=== PATIENT | male | born 1990 | race Caucasian/White ===

== ENCOUNTER 2020-11-21 10:17 | Outpatient (CLI) | payer OTHER, SELFPAY | END 2020-11-21 10:18 | disposition home or self-care (01) | LOC: ANHCOVIDVC 10:17 | PROVIDERS: PCP Family Medicine | DX: Z23 Encounter for immunization (principal) | CPT/HCPCS: 0001A; 91300 ==

== ENCOUNTER 2020-12-12 10:15 | Outpatient (CLI) | payer OTHER, SELFPAY | END 2020-12-12 10:16 | disposition home or self-care (01) | LOC: ANHCOVIDVC 10:15 | PROVIDERS: PCP Family Medicine | DX: Z23 Encounter for immunization (principal) | CPT/HCPCS: 0002A; 91300 ==

== ENCOUNTER → 2022-01-21 09:12 | Outpatient (CLI) | payer OTHER, SELFPAY ==
--- NOTE | ~2022-01-21 | XR_ITS ---
EXAMINATION: XR hand LT min 3V, XR wrist LT min 3V DATE: 01/21/2022 10:00 INDICATION: Injury to the left hand and wrist. TECHNIQUE: 1. Posteroanterior, navicular, oblique, and lateral views of the left wrist were obtained. 2. Dorsal palmar, oblique and lateral views of the left hand were obtained. COMPARISON: None. FINDINGS: Alignment of the left hand and wrist are normal. No fracture identified. Joint spaces are normal. No erosions or periosteal reaction. No focal soft tissue swelling. IMPRESSION: 1. Negative left hand and wrist radiographs. Reviewed, dictated and finalized at location A. IMPRESSION: 1. Negative left hand and wrist radiographs.
== END ==
PROVIDERS: PCP Family Medicine; Visit Provider Family Medicine
DX: S69.90XA Unspecified injury of unspecified wrist, hand and finger(s), initial encounter (principal); X58.XXXA Exposure to other specified factors, initial encounter
CPT/HCPCS: 73110; 73130

== ENCOUNTER 2024-12-30 16:44 | Emergency (ER) | payer OTHER, SELFPAY ==
--- OUTSIDE RECORDS SUMMARY | 2024-12-30 16:46 | XMS_ITS | Data Portability ---
[facility] Organization [facility] Address [address] [place] [address] Care Team Providers Care Chemistry Technical Officer Name Role Phone WEISS, ROCIO Primary Care Provider Unavailabl e Assessment No assessment recorded. Plan of Treatment Reminders Order Date Submit Date Provider Last Modified By Organization Details Last Modified Time Details Appointments None recorded. Lab SARS CoV 2 RNA (COVID-19), QL, registered respiratory technician-PCR, respiratory specimen - [place], cough 2019 020 [facility] (Lab), [address] [place], [address], 0 17:27:49 TSH, ultra-sensi tive, serum 2018 019 [facility], [address], [address], [place], [address], 9 10:36:29 CMP, serum or plasma 2018 019 [facility], [address], [place], [address], 9 10:36:26 lipid panel, serum 2018 019 [facility], [address], [place], [address], 9 10:36:27 CBC 2018 019 [facility], [address], [place], [address], 9 10:36:27 vitamin D, 25-hydroxy, total, serum 2018 019 [facility], [address] [facility], [facility] [address], [place], [address], 9 10:36:28 vitamin B12 + folate, serum or blood 2018 019 [facility], [address] [facility], [facility], [place], [address], 9 10:36:28 TSH, ultra-sensi tive, serum 2016 017 [facility], [address] [facility], [address], [place], [address], 7 10:36:48 Referral general surgeon referral 2018 019 noel Wesley MD, [address] [facility] , [facility] [address], [place], [address], 9 18:02:[address] referral - Please call pt to schedule appointment , Thank you 2016 017 [facility] ([facility]), [address], [address], [place], [address], 7 08:55:56 Procedures None recorded. Surgeries None recorded. Imaging US, upper extremity, nonvascular - r/o left AC seperation 2017 018 [facility] Not available 8 15:34:17 XR, clavicle 2016 017 [facility], [address] [facility] [place] [place], [address], 7 11:37:06 XR, shoulder 2016 017 [facility], [address] [facility] [place] [place], [address], 7 11:37:06 Medication Orders None recorded. Patient TargetsNo targets recorded. Patient Instructions Encounter Date Encounter Id Patient Instructions Last Modified By Organization Details Last Modified Time 04/07/2017 [id number] shoulder pain: care instructions Not available 04/07/2017 10:14:12 shoulder stretches: exercises Not available 04/07/2017 10:14:12 Increase activit y level to get exercise most days of the week. Work on eating more fresh fruit, veggies and lean protein and less packaged foods. Take all medications as prescribed. Keep appointments with PCP and all specialists. Not available 04/07/2017 10:12:29 xray, lab and derm referral, will call with all results DWP barriers to care: none Not available 04/07/2017 10:33:51 06/02/2017 [id number] shoulder pain: care instructions Not available 06/02/2017 09:48:30 Cont PT exercise s as discussed. Not available 06/02/2017 09:47:40 f/u as needed, a t least yearly to keep established. DWP barriers to care: none Not available 06/02/2017 10:19:59 10/12/2017 [id number] shoulder pain: care instructions Not available 10/12/2017 10:52:53 keep f/u as planned DWP barriers to care: none Not available 10/12/2017 11:11:58 12/30/2018 [id number] hernia: care instructions Not available 12/30/2018 09:06:34 Well Visit, Ages 18 to 65: Care Instructions Not available 12/30/2018 09:06:34 Increase intake of fresh fruits, and vegetables. Avoid packaged foods and fast foods. Follow a low salt diet, drink at least 8-10 8oz glasses of water a day, exercise most days of the week. Take all medications as prescribed. Keep appointments with PCP and all specialists. [facility] Not available 12/30/2018 09:06:46 follow up as needed, yearly to keep established with provider [facility] Not available 12/30/2018 09:08:57 12/19/2019 [id number] Reviewed the following recommendations: -Stay home and separate from others as much as possible. -Monitor your symptoms and seek medical attention for trouble breathing, persistent chest pain, confusion, or bluish lips or face. -Wear a mask if you must be around other people. -Wash your hands often for 20 seconds with soap and water and clean high-touch surfaces daily -You may discontinue home isolation if your symptoms are improving, it has been 10 days since symptoms started, and you have been fever free for at least 3 days. [email or web address] Not available 12/19/2019 11:10:05 Reason for Referral Labor Relations Worker Referral for C keesha in skin lesion Please call pt to schedule appointment, Thank you Referring Physician: Rocio Weiss [facility], Encounter Date: 04/07/2017 General Surgeon Referral for Hernia of anterior abdominal wall Referring Physician: Rocio Weiss [facility], Encounter Date: 12/30/2018 Results Created Date Observation Date Name Description Value Unit Range Abnormal Flag Note LastModifiedBy Organization Detail LastModifiedTime 04/07/20 17 04/08/2017 TSH, ultra -sens itive , serum TSH 2.300 uIU/m L 0.450- 4.500 Not Available [facility] ([facility]) [address] [place], [address], 04/08/2017 10:36:48 12/31/19 19 12/31/2018 CMP, serum or plasm a glucose 89 mg/dL 65-99 Not Available [facility] ([facility]) [address] [place], [address], 12/31/2018 10:36:26 12/31/19 19 12/31/2018 CMP, serum or plasm a BUN 12 mg/dL 6-20 Not Available [facility] ([facility]) [address] [place], [address], 12/31/2018 10:36:26 12/31/19 19 12/31/2018 CMP, serum or plasm a creatinine 0.95 mg/dL 0.76-1 .27 Not Available [facility] ([facility]) [address] [place], [address], 12/31/2018 10:36:26 12/31/19 19 12/31/2018 CMP, serum or plasm a eGFR if nonafricn AM 110 mL/mi n/1.7 3 >59 Not Available [facility] ([facility]) [address] [facility] [place], [address], 12/31/2018 10:36:26 12/31/19 19 12/31/2018 CMP, serum or plasm a eGFR if africn AM 127 mL/mi n/1.7 3 >59 Not Available [facility] ([facility]) [address] [facility] [place], [address], 12/31/2018 10:36:26 12/31/19 19 12/31/2018 CMP, serum or plasm a BUN/creatini ne ratio 13 9-20 Not Available [facility] ([facility]) [address] [facility] [place], [address], 12/31/2018 10:36:26 12/31/19 19 12/31/2018 CMP, serum or plasm a sodium 141 mmol/ L 134-14 4 Not Available [facility] ([facility]) [address] [facility] [place], [address], 12/31/2018 10:36:26 12/31/19 19 12/31/2018 CMP, serum or plasm a potassium 4.6 mmol/ L 3.5-5. 2 Not Available [facility] ([facility]) [address] [facility] [place], [address], 12/31/2018 10:36:26 12/31/19 19 12/31/2018 CMP, serum or plasm a chloride 103 mmol/ L 96-106 Not Available [facility] ([facility]) [address] [facility] [place], [address], 12/31/2018 10:36:26 12/31/19 19 12/31/2018 CMP, serum or plasm a carbon dioxide, total 25 mmol/ L 20-29 Not Available [facility] ([facility]) [address] [facility], [place], [address], 12/31/2018 10:36:26 12/31/19 19 12/31/2018 CMP, serum or plasm a calcium 9.8 mg/dL 8.7-10 .2 Not Available [facility] ([facility]) [address] [facility] [place], [address], 12/31/2018 10:36:26 12/31/19 19 12/31/2018 CMP, serum or plasm a protein, total 7.2 g/dL 6.0-8. 5 Not Available [facility] ([facility]) [address] [facility], [place], [address], 12/31/2018 10:36:26 12/31/19 19 12/31/2018 CMP, serum or plasm a albumin 4.8 g/dL 3.5-5. 5 Not Available [facility] ([facility]) [address] [facility], [place], [address], 12/31/2018 10:36:26 12/31/19 19 12/31/2018 CMP, serum or plasm a globulin, total 2.4 g/dL 1.5-4. 5 Not Available [facility] ([facility]) [address] [facility], [place], [address], 12/31/2018 10:36:26 12/31/19 19 12/31/2018 CMP, serum or plasm a A/G ratio 2.0 1.2-2. 2 Not Available [facility] ([facility]) [address] [facility], [place], [address], 12/31/2018 10:36:26 12/31/1912/31/2018 CMP, serum or plasm a bilirubin, total 0.6 mg/dL 0.0-1. 2 Not Available [facility] ([facility]) [address] [facility] [place], [address], 12/31/2018 10:36:26 12/31/19 19 12/31/2018 CMP, serum or plasm a alkaline phosphatase 48 IU/L 39-117 Not Available [facility]) [address] [place], [address], 12/31/2018 10:36:26 12/31/19 19 12/31/2018 CMP, serum or plasm a AST (SGOT) 21 IU/L 0-40 Not Available [facility] ([facility]) [address] [facility] [place], [address], 12/31/2018 10:36:26 12/31/19 19 12/31/2018 CMP, serum or plasm a ALT (SGPT) 20 IU/L 0-44 Not Available [facility] ([facility]) [address] [facility] [place], [address], 12/31/2018 10:36:26 12/31/19 19 12/31/2018 CBC WBC 4.2 x10e3 /uL 3.4-10 .8 Not Available [facility] ([facility]) [address] [place], [address], 12/31/2018 10:36:27 12/31/1912/31/2018 CBC RBC 4.91 x10e6 /uL 4.14-5 .80 Not Available [facility] ([facility]) [address] [facility] [place], [address], 12/31/2018 10:36:27 12/31/1912/31/2018 CBC hemoglobin 15.6 g/dL 13.0-1 7.7 Not Available [facility] ([facility]) [address] [facility] [place], [address], 12/31/2018 10:36:27 12/31/1912/31/2018 CBC hematocrit 43.2 % 37.5-5 1.0 Not Available [facility] ([facility]) [address] [facility] [place], [address], 12/31/2018 10:36:27 12/31/19 19 12/31/2018 CBC MCV 88 fL 79-97 Not Available [facility] ([facility]) [address] [facility] [place], [address], 12/31/2018 10:36:27 12/31/19 19 12/31/2018 CBC MCH 31.8 pg 26.6-3 3.0 Not Available [facility] ([facility]) [address] [facility] [place], [address], 12/31/2018 10:36:27 12/31/19 19 12/31/2018 CBC MCHC 36.1 g/dL 31.5-3 5.7 above high normal Not Available [facility] ([facility]) [address] [facility], [place], [address], 12/31/2018 10:36:27 12/31/19 19 12/31/2018 CBC RDW 12.3 % 12.3-1 5.4 Not Available [facility] ([facility]) [address] [facility] [place], [address], 12/31/2018 10:36:27 12/31/19 19 12/31/2018 CBC NRBC MOTORCYCLE RIDING INSTRUCTOR Not Available [facility] ([facility]) [address] [facility] [place], [address], 12/31/2018 10:36:27 12/31/19 19 12/31/2018 lipid panel , serum cholesterol, total 126 mg/dL 100-19 9 Not Available [facility] ([facility]) [address] [facility] [place], [address], 12/31/2018 10:36:27 12/31/19 19 12/31/2018 lipid panel , serum triglyceride s 64 mg/dL 0-149 Not Available [facility] ([facility]) [address] [facility] [place], [address], 12/31/2018 10:36:27 12/31/19 19 12/31/2018 lipid panel , serum HDL cholesterol 40 mg/dL >39 Not Available [facility] ([facility]) [address] [facility] [place], [address], 12/31/2018 10:36:27 12/31/19 19 12/31/2018 lipid panel , serum VLDL cholesterol tuan 13 mg/dL 5-40 Not Available [facility] ([facility]) [address] [facility] [place], [address], 12/31/2018 10:36:27 12/31/19 19 12/31/2018 lipid panel , serum LDL cholesterol calc 73 mg/dL 0-99 Not Available [facility] ([facility]) [address] [place], [address], 12/31/2018 10:36:27 12/31/19 19 12/31/2018 lipid panel , serum comment: MOTORCYCLE RIDING INSTRUCTOR Not Available [facility] ([facility]) [address] [facility] [place], [address], 12/31/2018 10:36:27 12/31/19 19 12/31/2018 vitam in B12 + folat e, serum or blood vitamin B12 986 pg/mL 232-12 45 Not Available [facility] ([facility]) [address] [facility] [place], [address], 12/31/2018 10:36:28 12/31/1912/31/2018 vitam in B12 + folat e, serum or blood folate (folic acid), serum >20.0 NG/mL >3.0 A serum folat e percy ntrat ion of less than 3.1 ng/mL is consi dered to repre sent clini tuan defic iency . Not Available [facility] ([facility]) [address] [facility] [place], [address], 12/31/2018 10:36:28 12/31/19 19 12/31/2018 vitam in D, 25-hy droxy , total , serum vitamin D, 25-hydroxy 40.1 NG/mL 30.0-1 00.0 Vitam in D defic iency has been defin ed by the Insti tute of Medic ine and an Endoc rine Socie ty pract ice guide line as a level of serum 25-OH vitam in D less than 20 ng/mL (1,2) . The Endoc rine Socie ty went on to furth er defin e vitam in D insuf ficie ncy as a level betwe en 21 and 29 ng/mL (2). 1. IOM (Inst itute of Medic ine). 2009. Dieta ry refer ence intak es for calci um and D. Tai mathew [place]: [facility] Press . 2. Lexie yepez MF, Jackie mo [place], Vanessa off-F [place] HARMAN, et al. Evalu ation , treat ment, and preve ntion of vitam in D defic iency : an Endoc rine Socie ty clini tuan pract ice guide line. JCEM. 2010; 96(7) :1911 -30. Not Available [facility] ([facility]) [address] [place], [address], 12/31/2018 10:36:28 12/31/19 19 12/31/2018 TSH, ultra -sens itive , serum TSH 2.690 uIU/m L 0.450- 4.500 Not Available [facility] ([facility]) [address] [place], [address], 12/31/2018 10:36:29 12/19/19 20 12/19/2019 SARS CoV 2 RNA (COVI D-19) , QL, registered respiratory technician-P CR, respi rator y speci men sars - cov - 2 PCR NEGATI VE mL Not Available [facility] (Lab) [address] [place] [address], [address], 12/20/2019 17:27:49 12/19/19 20 12/19/2019 SARS CoV 2 RNA (COVI D-19) , QL, registered respiratory technician-P CR, respi rator y speci men covidcom1 COMME NTS: This assay is desig zita to detec t the RdRp and N genes of SARS- CoV-2 using nucle ic acid ampli ficat ion. A negat claudio resul t does not precl ude the possi bilit y of 2019- nCoV infec tion since the adequ acy of sampl e colle ction and/o r low viral burde n may resul t in the prese nce of viral nucle ic acids level s below the shari tical sensi tivit y of this test metho d. Not Available [facility] (Lab) [address] [facility], [place], [address], 12/20/2019 17:27:49 12/19/19 20 12/19/2019 SARS CoV 2 RNA (COVI D-19) , QL, registered respiratory technician-P CR, respi rator y speci men covidcom2 Posit claudio resul ts are indic ative of the prese nce of SARS- CoV-2 RNA and do not rule out bacte rial infec tion or co-in fecti on with other virus es. Not Available [facility] (Lab) [address] [facility], [place], [address], 12/20/2019 17:27:49 12/19/19 20 12/19/2019 SARS CoV 2 RNA (COVI D-19) , QL, registered respiratory technician-P CR, respi rator y speci men covidcom3 Test resul ts shoul d be used along with other clini tuan obser vatio ns, patie nt histo ry, epide miolo gical infor matio n and labor atory data in makin g the diagn osis. Not Available [facility] (Lab) [address] [facility], [place], [address], 12/20/2019 17:27:49 12/19/19 20 12/19/2019 SARS CoV 2 RNA (COVI D-19) , QL, registered respiratory technician-P CR, respi rator y speci men covidcom4 This test has recei claribel FDA Emerg ency Use Autho rizat ion and has been verif ied by [facility] . This test is only autho rized for the durat ion of the decla ratio n and the circu mstan clemente that exist to justi fy the autho rizat ion of the emerg ency use of in vitro diagn ostic tests for the detec tion of SARS- CoV-2 virus and/o r diagn osis of COVID -19 infec tion under secti on 564 (b) (1) of the Act. 11 U.S.C . 360bb b-3 (b) (1), unles s the autho rizat ion is termi nated or revok ed soone r. Not Available [facility] (Lab) [address] [place], [address], 12/20/2019 17:27:49 12/19/19 20 12/19/2019 SARS CoV 2 RNA (COVI D-19) , QL, registered respiratory technician-P CR, respi rator y speci men covidcom5 [facility] is certi fied under CLIA- 88 as quali fied to perfo rm high compl exity testi ng. This testi ng was perfo rmed in the [facility] [place] [address] (CLIA Licen se #[id number], CAP #[id number], AU-ID #[id number]). Not Available [facility] (Lab) [address] [facility], [place], [address], 12/20/2019 17:27:49 12/19/19 20 12/19/2019 SARS CoV 2 RNA (COVI D-19) , QL, registered respiratory technician-P CR, respi rator y speci men covidcom6 Facts heet for healt hcare provi ders: https ://ww w.fda .gov/ media /1366 56/do wnloa d Facts heet for patie nts: https ://ww w.fda .gov/ media /1362 57/do wnloa d Not Available [facility] (Lab) [address] [place], [address], 12/20/2019 17:27:49 04/09/20 17 04/09/2017 XR, shoul gabe No observ ation record ed. [address] [place], [address], 04/10/2017 17:01:20 04/09/20 17 04/09/2017 XR, shoul gabe No observ ation record ed. Not Available 2016 17:01:20 04/09/20 17 04/09/2017 XR, clavi april No observ ation record ed. [email or web address] Not Available 2016 17:01:20 04/09/20 17 04/09/2017 XR, clavi april No observ ation record ed. [email or web address] [address] [place], [address], 04/10/2017 17:01:20 10/15/19 18 10/14/2017 US, upper extre mity, nonva scula r No observ ation record ed. R[facility]ARD Not Available 2017 21:27:54 Result Notes None recorded. Problems Name Problem SNOMED Code Status Onset Date Resolution Date Notes Provider Name and Address Organization Details Recorded Time Pain of shoulder region 57762496 Active 018 Rocio Weiss APN, PROPERTY UNDERWRITER-C Attn: Accounting ,[address] [place], [address] , [facility] - [place] 8 10:39:39 Gastritis 0716011 Active Brett Villasenor [place], [place] - [place] 6 10:18:02 Problem Notes None recorded. Procedures Surgical History None recorded. Imaging Results Imaging Date Name Status LastModified by [facility] Details LastModified Time 04/09/2017 XR, shoulder completed [email or web address] [address] [place], [address], 04/10/2017 17:01:20 04/09/2017 XR, shoulder completed [email or web address] Information not available 04/10/2017 17:01:20 04/09/2017 XR, clavicle completed [email or web address] Information not available 04/10/2017 17:01:20 04/09/2017 XR, clavicle completed [email or web address] [place] [address] , [place], [address], 04/10/2017 17:01:20 10/14/2017 US, upper extremity, nonvascular completed RENARD Information not available 10/14/2017 21:27:54 Procedure Notes None recorded. Medical Equipment None Reported. Allergies No known drug allergies Medications Name Sig Start Date Stop Date Status Note LastModified by Organization Details LastModified Time amoxicillin 500 mg capsule active Not Available Not Available Not Available cefuroxime axetil 250 mg tablet 10/12 completed Not Available Not Available Not Available clindamycin HCl 300 mg capsule 04/07 completed Not Available Not Available Not Available hydrocodone 5 mg-acetaminop hen 325 mg tablet active Not Available Not Available Not Available acetaminophen 300 mg-codeine 30 mg tablet active Not Available Not Available No t Available sulfamethoxaz ole 800 mg-trimethopr im 160 mg tablet active Not Available Not Available Not Available ranitidine 150 mg tablet Take 1 tablet twice a day by oral route. 11/13 completed Not Available Not Available Not Available mupirocin 2 % topical ointment 04/07 completed Not Available Not Available Not Available diazepam 10 mg tablet active Not Available Not Available No t Available Vitals Date Recorded Body height Body mass index (BMI) Body weight Oxygen saturation Oxygen saturation in Arterial blood by Pulse oximetry Heart rate Respiratory rate Body temperature Systolic blood pressure Diastolic blood pressure Provider Name and Address Organization Details Last Updated DateTime 8 185.42 cm 22.7 kg/m2 73851.9 9 g 100 % 100 % 72 /min 12 /min 98.3 [degF] 124 mm[Hg] 88 mm[Hg] Kathe Nogueira [place] [facility] 8 10:34:38 Date Recorded Body height Body mass index (BMI) Body weight Oxygen saturation Oxygen saturation in Arterial blood by Pulse oximetry Heart rate Respiratory rate Body temperature Systolic blood pressure Diastolic blood pressure Provider Name and Address Organization Details Last Updated DateTime 9 185.42 cm 24.3 kg/m2 88325.1 5 g 97 % 97 % 84 /min 16 /min 97.1 [degF] 124 mm[Hg] 86 mm[Hg] Parisa Way [place] [facility] 9 08:25:16 Date Recorded Body height Body mass index (BMI) Body weight Oxygen saturation Oxygen saturation in Arterial blood by Pulse oximetry Heart rate Respiratory rate Body temperature Systolic blood pressure Diastolic blood pressure Provider Name and Address Organization Details Last Updated DateTime 7 185.42 cm 22.5 kg/m2 90307.5 g 98 % 98 % 76 /min 16 /min 98.2 [degF] 110 mm[Hg] 70 mm[Hg] Kathe Nogueira [facility] 7 09:55:50 Date Recorded Body height Body mass index (BMI) Body weight Oxygen saturation Oxygen saturation in Arterial blood by Pulse oximetry Heart rate Respiratory rate Body temperature Systolic blood pressure Diastolic blood pressure Provider Name and Address Organization Details Last Updated DateTime 7 185.42 cm 23.5 kg/m2 34804.1 4 g 99 % 99 % 88 /min 16 /min 97.7 [degF] 120 mm[Hg] 90 mm[Hg] Kathe Nogueira [facility] 7 08:59:37 Social History Question Answer Notes LastModified by Organizat ion Details LastModified Time Tobacco Smoking Status Former Smoker Debora Del Real [place] [facility], [facility] 05/21/2015 09:13:42 Do You Have An Advance Directive? No Information not available 12/30/2018 What Is Your Level Of Caffeine Consumption? Heavy Coffee And Tea Information not available 11/13/2016 How Much Tobacco Do You Chew? None Information not available 04/07/2017 What Type Of Diet Are You Following? VEGETARIAN Information not available 11/13/2016 Which Illicit Or Recreational Drugs Have You Used? None Information not available 04/07/2017 Education 4 Year College Informatio n not available 12/30/2018 Are There Any Guns Present In Your Home? Yes Information not available 12/30/2018 Hard Of Hearing Or Deaf In One Or Both Ears? No Information not available 11/13/2016 Legally Blind In One Or Both Eyes? No Information not available 11/13/2016 Marital Status Single Informatio n not available 12/30/2018 What Was The Date Of Your Most Recent Tobacco Screening? 12/30/2018 Information not available 03/03/2019 Seat Belts Used Routinely Yes Information not available 12/30/2018 Smoke Alarm In Home Yes Information not available 12/30/2018 How Much Tobacco Do You Smoke? 1 PPD [email or web address] Information not available 05/21/2015 General Stress Level Low Information not available 11/13/2016 Do You Use Sunscreen Routinely? Yes Information not available 12/30/2018 Sex: Unknown Functional Status Question Answer Note LastModified by Organizat ion Details LastModified Time What is your level of alcohol consumption? Moderate Information not available 12/30/2018 What is your occupation? [employer] Information not available 12/30/2018 What is your exercise level? Occasional Information not available 12/30/2018 Mental Status None recorded. Family History Relationship Description Onset Age of this Age Resolved Age Notes LastModified by Organization Details LastModified Time Mother Disorder of thyroid gland cgrandberry Not available 05/10 09:13:42 Father Atrial fibrillation cgrandberry Not available 1 09:13:42 Father Sarcoidosis cgrandberry Not kacie ilable 05/21/2015 09:13:42 Sister Disorder of thyroid gland cgrandberry Not available 05/10 09:13:42 Medical History Condition Response Coronary Artery Disease N Other N High Blood Pressure N Atrial Fibrillation N Kidney or Bladder Problems N Thyroid Problems N GI Problems N Depression N COPD N Blood Clots N Skin Problems N Anemia N Orthopedic Problems Y Heart Attack (NH) N Anxiety Disorder N Diabetes N Muscle, Joint, or Bone Problems Y Seizures/Epilepsy N Acid Reflux (GERD) N Cancer N Stroke N Asthma N Allergies N High Cholesterol N Hepatitis N Liver Disease N Headaches N Heart Failure N Osteoporosis N Immunizations Vaccine Type Date Status Note Provider Nam e and Address Organization Details Recorded Time Tdap 7 completed Not Available [facility] 08/27/2019 02:41:32 Tdap 6 completed KALLIE Rothman [facility] 05/21/2015 09:40:39 Influenza, split virus, quadrivalent, preservative 5 completed Not Available [facility] 08/27/2019 02:39:22 Past Encounters Encounter ID Performer Location Encounter Start Date Encounter Closed Date Diagnosis/Indication Diagnosis SNOMED-CT Code Diagnosis ICD10 Code Diagnosis Note [id number] MD Faviola Herrera (Adult Med) [address] [place] [address] 05/21/2015 08:40:20 05/21/2015 15:18:32 Adult health examination 703379213 Z00.00 Patient came for routine exam. No active symptoms. Physical exam unremarkab le. Already received the Tetanus vaccinatio ns. Advised regular exercise and healthy diet. will give flu vaccine today. Influenza vaccine needed [id number] 106 Z28.3 [id number] MD Faviola Herrera (Adult Med) [address] [place] [address] 10/17/2015 09:46:44 10/18/2015 12:24:48 [facility] 09530[facility] Z02.0 No active symptoms. Physical exam unremarkab le.CXR request given. HIV and RPR blood test. [id number] MD Faviola Herrera (Adult Med) [address] [place] [address] 10/25/2015 09:33:45 10/26/2015 16:14:24 Gastritis 1972858 K29.70 Advised patient to avoid spicy foods. Decrease the consumptio n of caffiene. Check H.Pylori stool antigen. Ranitidine 150 mg po bid. Follow up as needed. [id number] Rocio Weiss APN, FNP-C [facility] (Adult Med) [address] [place] [address] 11/13/2016 08:50:16 11/13/2016 10:45:50 Administration of diphtheria, pertussis, and tetanus vaccine 862821187 Z23 Adult heal th examination 533951068 Z00.00 [id number] Rocio Weiss APN, FNP-C [facility] (Adult Med) [address] [place] [address] 04/07/2017 09:39:37 04/07/2017 10:50:21 Shoulder joint pain 369485268 M25.519 obtain xrays, gentle stretching Change in skin lesion 39 6647381 L98.9 2 moles on left upper back pt states that they hae changed in shape and darkened in color Endocrine/ metabolic screening 701826176 Z13.228 family hx of graves and hashimotos ; increased palpitatio ns since increasing coffee Clavicle pain 903185566 M25.519 obtain x ray [id number] MD Faviola Gillespie (Adult Med) [address] [place] [address] 06/02/2017 08:50:52 06/08/2017 09:00:16 Pain of shoulder region 23752696 M25.512 improved if not almost completely resolved after PT, [id number] MD Faviola Gillespie (Adult Med) [address] [place] [address] 10/12/2017 10:23:33 10/14/2017 10:44:41 Pain of shoulder region 60689883 M25.512 finished PT May 2018 with great improvemen t; recent change when working out, painful AC compressio n/crossove r test; will send for UScont to use sling and motrin as needed [id number] MD Faviola Gillespie (Adult Med) [address] [place] [address] 12/30/2018 08:16:16 12/31/2018 11:43:18 Adult health examination 651859928 Z00.01 Encouraged patient to eat well balanced meals, live active lifestyle and attend routine vision/den cristina apts. Fatigue 14683150 R53.83 increased fatigue, pt thinks it is more anxiety related with lack of sleep but even with sleep he still feels tired, family hx fo thyroid issues as well Hernia of anterior abdominal wall 132173807 K43.9 small reducible hernia, no pain, only tender with deep palpation, dwp options and pt would like to be referred before it requires mesh repair Feeling stressed 1928418 06 Z73.3 job related, anxiety on Thursday nights, pt inquires about medical marijuana card [id number] MD Rubio Guzman [address] [place] [address] 12/19/2019 10:22:55 12/20/2019 08:12:09 Cough 39738045 R05 Health Concerns Section Related Observation LastModified by Organization Detai ls LastModified Time None Recorded Concern Status LastModified by Organization Details LastModified Time None Recorded Advance Directives Directive N: Payers Encounter Date Sequence Insurance Name Policy Number Policy Barillas Covered Member ID Barillas Member ID Guarantor Name 04/07/2017 1 [facility] (MEDICAID HMO) [id number] Nirav Shive [id number] Nirav Shive 06/02/2017 1 [facility] (MEDICAID HMO) [id number] Nirav Shive [id number] Nirav Shive 10/12/2017 1 [facility] (MEDICAID HMO) [id number] Nirav Shive [id number] Nirav Shive 12/30/2018 1 [facility] [id number] Nirav Landa Shive [id number] Nirav Shive 12/19/2019 1 [employer] - [facility] - CHOICE PLUS (PPO) [id number] Nirav Shive [id number] Nirav Shive Notes Date Note Type Note Provider Name and Address Organization Details Recorded Time 04/07/2017 text/html -Pt c/o pain in left collar bone; pt states during working out x 3 months. Pt also concerns for numbness and tingling in legs and arms. Stopped working out. and now its is not hurting as much or going numb, had shoulder surgery on right side several years ago -Pt c/o moles color changed and are bigger in size. on back, -Pt c/o difficulty breathing x3 months. maybe related to anxiety or drinking a large amount of coffee; states it only happens when he drinks several large mugs and then feels amped up Rocio Weiss APN, PROPERTY UNDERWRITER-C Attn: Accounting,[address] [facility], [place], [address], [facility] 04/07/2017 10:34:32 06/02/2017 text/html Pt here to f/u f rom d/c from PT; went to all 9 sessions, states his ROM is now better and he can lift most of what he did prior to injury.Lower back was bothering him due to recent mattress change and he slept on floor and now is better. Rocio Weiss APN, FNP-C Attn: Accounting,[address] [facility], [place], [address], [facility] 06/02/2017 10:20:11 10/12/2017 text/html ShoulderReported bypatient.Location:[facility] Quality:throbbing; sharp; occasional Duration:4 days Timing:abrupt Context:lifting Alleviating Factors:ice; rest; NSAIDs Associated Symptoms:popping/click ing;instability Previous Surgery:none Prior Imaging:x ray Previous Injections:none Work Related:noNotes:Was lifting above his head with barbell 4 days ago, felt a pop ; no pain when still; only has pain with movement . Rocio Weiss APN, FNP-C Attn: Accounting,[address] [facility], [place], [address], [facility] 10/12/2017 11:13:10 12/30/2018 text/html Here for regular check up, -thinks he has an abdominal hernia, still lifts weights. Started to notice it about 5 months ago, no pain, only bothersome if he pokes at it. Does not want mesh but would like to see gen surgery. -sleep- so/so, mostly not refreshed if he gets enough sleep, only drinks 1 cup coffee. Has a lot on his mind. February 1 yr at his job, has increased anxiety. Rocio Weiss APN, FNP-C Attn: Accounting,[address] [facility], [place], [address], [facility] 12/30/2018 09:20:55 12/19/2019 text/html COVID ScreeningReported bypatient.Onset/Durati on of fever:fever; no fever Associated Symptoms:cough; no shortness of breathCOVID-19 Symptoms October 2019Reported bypatient.COVID-19 Signs and Symptomscough same Contacts and Exposureclose contact with a confirmed or suspected case of COVID-19 Quality:dry cough Associated Symptoms:fever;body aches pt states that since thursday he has fever cough headache and bodyaches he admits that he does not have a thermometer FREDERICK BESS NP Attn: Accounting,[address] [place], [address], [place] [facility] 12/19/2019 11:10:26
[2024-12-30 16:48] VITALS: BP 150/85; PULSE 81; RESP 16; TEMP 37.1; O2SAT 99
--- OUTSIDE RECORDS SUMMARY | 2024-12-30 16:48 | XMS_ITS | Clinical Summary ---
Author Organization [facility] [address] [place] [address] Phone Care Team Providers Care Hand Method Lasting Machine Operator Name Role Phone ZunigaRocio Faviola SMITH Primary Care Provider [phone] Allergies No known active allergies Medications HYDROcodone-acet aminophen (NORCO) 5-325 mg per tablet take 1 tablet by oral route every 4 - 6 hours as needed for pain 30 0 02/15/2014 Active acetaminophen-co deine (TYLENOL-CODEINE #3) 300-30 mg per tablet take 1 - 2 tablet by oral route every 6 hours 40 1 12/22/2014 Active Active Problems Problem Noted Date Diagnosed Date Former cigarette smoker of unknown amount 2014 Overview (11/13/2016): Ex-cigarette smoker amount unknown Shoulder pain 01/02/2015 Overview (11/13/2016): Shoulder pain Medical History Medical History Date Comments Hx Other Medical shoulder surg. 2007-03.; Comments: HARVEY 02/15/2014 - Hx Other Medical Right anterior shoulder Bankart repair 12-19-14.; Comments: HARVEY 01/02/2015 - Family History Medical History Relation Name Comments Heart disease Father Heart disease; Other Father Neck surgery /e ye surgery; Fibromyalgia Mother Fibromyalgia; Other Mother kidney disease; Thyroid disease Mother Thyroid diso rder; Relation Name Status Comments Father Mother Social History Tobacco Use Types Packs/Day Years Used Date Smoking Tobacco: Every Day Smokeless Tobacco: Never Sex and Gender Information Value Date Recorded Sex Assigned at Not on file Legal Sex 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 Gender Identity Not on file Sexual Orientation Not on file Obstetrics History Last Filed Vital Signs Vital Sign Reading Time Taken Comments Blood Pressure 120/76 10/16/2017 8:45 AM MEDICAL LABORATORY SPECIALIST Pulse 76 10/16/2017 8:45 AM MEDICAL LABORATORY SPECIALIST Temperature - - Respiratory Rate - - Oxygen Saturation - - Inhaled Oxygen Concentration - - Weight 79.4 kg (175 lb) 10/16/2017 8:45 AM MEDICAL LABORATORY SPECIALIST Height 188 cm (6' 2 ) 10/16/2017 8:45 AM MEDICAL LABORATORY SPECIALIST Body Mass Index 22.47 10/16/2017 8:45 AM MEDICAL LABORATORY SPECIALIST Plan of Treatment Health Maintenance Due Date Last Done Comments Depression Screening 1992 Hepatitis C Screening 1992 Varicella Vaccines (1 of 2 - 13+ 2-dose series) 2005 Hepatitis B Screening 2010 Regular Well Visit/Exam 18-64 2010 Pneumococcal vaccine <65 (1 of 2 - PCV) 2011 Covid-19 Vaccine (3 - 2023-2 5 season) 2024 12/12/2020, 11/21/2020 Influenza Vaccine (Season Ended) 2025 05/21/2015 DTaP/Tdap/Td Vaccine (3 - Td or Tdap) 11/13/2026 11/13/2016, 01/15/2006 HPV Vaccines Aged Out No longer eligi ble based on patient's age to complete this topic Insurance [facility] [employer] Address: [address] [place] [address] Care Teams Hand Method Lasting Machine Operator Relationship Specialty Start Date End Date Rocio Zuniga NP [address] [place] [address] PCP - General 04/09/17
--- OUTSIDE RECORDS SUMMARY | 2024-12-30 16:48 | XMS_ITS | Referral Summary ---
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 Gender Identity Not on file Sexual Orientation Not on file Last Filed Vital Signs Vital Sign Reading Time Taken Comments Blood Pressure 120/76 10/16/2017 8:45 AM WIND ENERGY ENGINEER Pulse 76 10/16/2017 8:45 AM WIND ENERGY ENGINEER Temperature - - Respiratory Rate - - Oxygen Saturation - - Inhaled Oxygen Concentration - - Weight 79.4 kg (175 lb) 10/16/2017 8:45 AM WIND ENERGY ENGINEER Height 188 cm (6' 2 ) 10/16/2017 8:45 AM WIND ENERGY ENGINEER Body Mass Index 22.47 10/16/2017 8:45 AM WIND ENERGY ENGINEER Plan of Treatment Not on file Insurance [facility] [employer] Address: [facility] [id number] [place] [address] Care Teams Farm Management Teacher Relationship Specialty Start Date End Date Zuniga, Rocio Salmeron NP [address] [place] [address] PCP - General 04/09/17
[2024-12-30 17:03] LABS: EDSTREPNEGPOS1 Negative (Negative)
--- NOTE | 2024-12-30 17:03 | ED.URI ---
HPI - URI/Sore Throat General Chief Complaint: Upper Respiratory Infection Stated Complaint: Bodyache, Fatigue, Sensitive Skin and Ears, Conges Source: patient and RN notes reviewed Mode of arrival: ambulatory Limitations: no limitations History of Present Illness HPI Narrative: 34-year-old male presented for complaint of headache, body aches, sinus pressure/congestion, cough, sore throat, fever/chills. Onset 2 days. Denies sob, wheezing, n/v/d. Taking Nyquil and tylenol. with similar symptoms. MD elicited complaint: cough Related Data Home Medications ?Medication ?Instructions ?Recorded ?Confirmed ?Last Taken ?Type multivitamin 1 tablet PO DAILY 01/02/21 05/02/24 Unknown History Allergies Allergy/AdvReac Type Severity Reaction Status Date / Time No Known Allergies Allergy Verified 12/30/24 16:56 Review of Systems Review of Systems: CONSTITUTIONAL: Endorses malaise, body aches, chills, sweats, fever EYES: Denies visual changes, redness, or discharge ENT: Reports rhinorrhea, congestion, sore throat CARDIOVASCULAR: Denies chest pain, palpitations, edema RESPIRATORY: Reports cough, post nasal drainage. Denies dyspnea GASTROINTESTINAL: Denies abdominal pain, nausea, vomiting, diarrhea SKIN: Denies rash or itching NEUROLOGIC: Denies headache PMFSH Past Medical History Medical History Vasomotor rhinitis Vegan Ventral hernia without obstruction or gangrene Surgical History Surgical History H/O shoulder surgery (~2008) 2008 & 2014 History of hernia surgery (~2019) Family History Family History Father Depression Heart disease Cerebrovascular accident Mother Asthma Depression Thyroid disorder Kidney problem Grandparent Hypertension Heart problem Cancer Other Diabetes mellitus Family history of allergic disorder Family history of cardiovascular disease Family history of lung cancer Family history of malignant neoplasm Social History Social History (Updated 05/02/24 @ 08:04 by Alpa Torre MA) Smoking status: Former smoker Smoking end date: 08/10/13 Alcohol intake: never Substance use: former Substance use type: marijuana Do You Feel Safe in your Home?: Yes Living arrangements: with family Occupation/Education: occupation Gender identity (if verbalized by the patient): Male Exam Narrative: GENERAL: well-appearing, nontoxic no acute distress. EYES: conjunctivae clear ENT: Mucous membranes moist. nasal congestion noted TMs pearly jaramillo with dull light reflex bilaterally; no tragal tenderness. Oropharynx erythematous without lesions or exudate, Tonsils 1+. no drooling, no hoarseness, no trismus, uvula midline. No tripod positioning, muffled voice, soft palate or pharyngeal wall bulging NECK: Supple. No lymphadenopathy CHEST: Clear to auscultation, breath sounds equal. No wheezing, rhonchi, rales, or stridor. No respiratory distress, speaks in full sentences. HEART: Regular rate and rhythm. No murmur heard. SKIN: Warm, dry, no rash. NEURO: Alert and oriented x3. PSYCH: Normal mood and affect Course Course Emergency Course: Patient is aware of diagnosis, understands and agrees to treatment plan. Anticipatory guidance given. Patient agrees to follow-up as directed and is aware of reasons to seek care at the emergency department. Portions of this record may have been created with voice recognition software Level of Care: Express Care Visit Vital Signs Vital signs: Vital Signs Temperature 98.7 F 12/30/24 16:48 Pulse Rate 81 12/30/24 16:48 Respiratory Rate 16 12/30/24 16:48 Blood Pressure 150/85 H 12/30/24 16:48 Pulse Oximetry 99 12/30/24 16:48 Oxygen Delivery Room Air 12/30/24 16:48 Temperature 98.7 F 12/30/24 16:48 Pulse Rate 81 12/30/24 16:48 Respiratory Rate 16 12/30/24 16:48 Blood Pressure 150/85 H 12/30/24 16:48 Pulse Oximetry 99 12/30/24 16:48 Oxygen Delivery Room Air 12/30/24 16:48 reviewed MDM - URI/Sore Throat MDM Narrative Medical decision making narrative: Discussed physical exam findings and test results. Advised supportive measures and signs/symptoms to go to the ER. Pt is appropriate for outpt treatment and f/u. Differential Diagnosis Differential diagnosis: Likely upper respiratory infection, sinusitis and viral infection Lab Data Labs: Lab Results 12/30/24 Range/Units 17:01 POC Grp A Strep Screen Negative (Negative) Discharge Plan Discharge Clinical Impression: Upper respiratory infection Patient Disposition: Home Condition: Stable Instructions: Antibiotic Form, Upper Respiratory Infection (ED) Additional Instructions: flu COVID negative Rapid strep swab was negative today You will be notified in a few days if the culture comes back positive for strep, and appropriate antibiotics will be called in at that time. if symptoms are due to a viral illness, it is not treated with antibiotics. Viral symptoms can be present for up to 10-14 days. Recommendations: Flonase spray and Zyrtec for sinus congestion Cough syrup may cause drowsiness; avoid driving or take it at night time. Tylenol every 8 hours as needed for pain/fever Soft foods, cool liquids, warm tea. Gargle with warm saltwater twice a day. Chloraseptic spray and throat lozenges. Rest and stay hydrated. --Follow up with your PCP --Go to the ER immediately if you cannot swallow your saliva, trouble breathing/wheezing, throat swelling, pain is persistent and severe Patient Language: [place] Islander Prescriptions: New benzonatate 200 mg capsule 200 mg PO TID PRN (Reason: cough) Qty: 20 0RF methylprednisolone [Medrol (Riaz)] 4 mg tablets,dose pack See Rx Instructions .ROUTE .COMPLEX Qty: 21 0RF Rx Instructions: orally per package directions No Action multivitamin Tablet 1 tablet PO DAILY Follow-up/Referrals: Enrique Hoff MD [Primary Care Provider] - Time of Disposition: 17:12
[2024-12-30 17:08] LABS: EDCOVIDSCREEN Negative (Negative); EDINFLUASCREEN Negative (Negative); EDINFLUBSCREEN Negative (Negative)
== END 2024-12-30 17:17 | disposition home or self-care (01) ==
PROVIDERS: Emergency Provider Nurse Practitioner Family; PCP Family Medicine
DX: J06.9 Acute upper respiratory infection, unspecified (principal); Z20.822 Contact with and (suspected) exposure to COVID-19; Z87.891 Personal history of nicotine dependence
CPT/HCPCS: 87081; 87426; 87804; 87880; 99213; G0463